=== PATIENT | female | born 1955 | race Caucasian/White ===

== ENCOUNTER 2021-03-22 10:03 | Outpatient (CLI) | payer MEDICARE, SELFPAY ==
--- NOTE | ~2021-03-22 | CT_ITS ---
EXAMINATION: CT lung screening DATE: 03/22/2021 10:31 INDICATION: Personal history of tobacco dependence, current smoker with 30 pack year history TECHNIQUE: Computed tomography (CT) of the chest was performed without intravenous contrast. The dose -length product (DLP) was 259.83 mGy-cm. Automated exposure control and iterative reconstruction tech [employer] were employed. COMPARISON: None FINDINGS: There is a 3 mm nodule of the left lower lobe on image 85. There is a 4 mm nodule of the ri ght middle lobe on image 58. There is mild emphysema. There is no pleural effusion or pneumothorax. T he lungs are free of acute opacities. No pathologically enlarged thoracic lymph nodes are identified. The heart size is normal. 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 Calcified coronar y artery atherosclerosis is noted. Calcified pulmonary nodules and calcified right hilar and mediasti nal lymph nodes are consistent with old granulomatous disease. There is a partially imaged cyst of th e right kidney upper pole measuring up to 5.8 cm. Cholelithiasis is noted. There are bridging osteoph ytes at multiple levels in the spine, consistent with diffuse idiopathic skeletal hyperostosis (DISH) . IMPRESSION: 1. Lung-RADS category 2: Benign appearance or behavior. Continue annual screening with noncontrast lo w-dose chest CT in 12 months. Reviewed, dictated and finalized at location A. IMPRESSION: 1. Lung-RADS category 2: Benign appearance or behavior. Continue annual screeni ng with noncontrast low-dose chest CT in 12 months.
== END 2021-03-22 10:04 | disposition home or self-care (01) ==
PROVIDERS: PCP Emergency Medicine; Visit Provider Emergency Medicine
DX: Z12.2 Encounter for screening for malignant neoplasm of respiratory organs (principal); Z87.891 Personal history of nicotine dependence
CPT/HCPCS: 71271

== ENCOUNTER 2022-01-25 09:56 | Outpatient (CLI) | payer MEDICARE, SELFPAY ==
--- NOTE | ~2022-01-25 | MM_ITS ---
EXAMINATION: MM screening [facility] BI w barry HISTORY: Screening mammogram TECHNIQUE: Craniocaudal and mediolateral oblique 3-D tomosynthesis images were obtained and synthetic 2-D images were generated. CAD analysis was submitted and interpreted. COMPARISON: 09/24/2018, 07/31/1716 BREAST PARENCHYMAL COMPOSITION: The breasts are almost entirely fatty. FINDINGS: There is no suspicious mass, calcification, or architectural distortion to suggest malignan cy in either breast. There has been no suspicious interval change. IMPRESSION: 1. No mammographic evidence of malignancy. 2. Recommend routine screening mammography in one year. BI-RADS Category 1: Negative Reviewed, dictated and finalized at location A.
== END 2022-01-25 09:57 | disposition home or self-care (01) ==
PROVIDERS: PCP Emergency Medicine; Visit Provider Emergency Medicine
DX: Z12.31 Encounter for screening mammogram for malignant neoplasm of breast (principal)
CPT/HCPCS: 77063; 77067

== ENCOUNTER 2022-02-18 11:14 | Emergency (ER) | payer MEDICARE, MEDICAID, SELFPAY ==
--- NOTE | ~2022-02-18 | XR_ITS ---
XR tibia fibula LT 2V DATE: 02/18/2022 12:39 INDICATION: Fall 10 days ago, worsening pain TECHNIQUE: AP and lateral views COMPARISON: None FINDINGS: There is a comminuted intra-articular fracture of the lateral tibial plateau, with minimal displacement. There is suprapatellar knee joint effusion. Diffuse osteopenia. No other fracture or dislocation is detected. Tricompartmental left knee osteoarthritis. IMPRESSION: Comminuted intra-articular fracture of the lateral tibial plateau with joint effusion Osteoarthritis of the left knee Reviewed, dictated and finalized at location A. IMPRESSION: Comminuted intra-articular fracture of the lateral tibial plateau w ith joint effusion Osteoarthritis of the left knee
--- NOTE | ~2022-02-18 | CT_ITS ---
CT OF LEFT knee EXAMINATION: CT knee LT wo con DATE: 02/18/2022 14:36 INDICATION: Tibial plateau fracture. TECHNIQUE: Computed tomography (CT) of the left knee was performed without intravenous contrast. Auto mated exposure control and iterative reconstruction technique were employed. The dose-length product was 504.34 mGy-cm. COMPARISON: X-ray femur and tib-fib, same date FINDINGS: Limitations: None Bones: Severely decreased bone mineral density. Comminuted fracture of the medial and lateral aspects of the roughly posterior half of the tibial plateau, including the tibial spine. Depressed fragments , with cortical step-offs in both the medial and lateral compartments, measuring up to 4 and 7 mm res pectively. Lateral subluxation of the intact patella. Severe tricompartmental knee osteoarthritis. De generative change at the tibiofibular articulation. Soft Tissues:The soft tissues appear within normal limits. No evidence of mass or fluid collection. Fluid: Large volume joint fluid, containing fat. IMPRESSION: Comminuted, depressed fractures of the posterior aspect of the medial and lateral left tibial plateau . Large lipohemarthrosis. Reviewed, dictated and finalized at location K. IMPRESSION: Comminuted, depressed fractures of the posterior aspect of the medial and later al left tibial plateau. Large lipohemarthrosis.
--- NOTE | ~2022-02-18 | XR_ITS ---
XR femur LT min 2V DATE: 02/18/2022 12:39 INDICATION: Fall 2010 days ago. Worsening left leg pain TECHNIQUE: AP and lateral views of left femur COMPARISON: None FINDINGS: Prominent calcified uterine fibroid overlies the lower mid pelvis. Status post left total hip arthroplasty. No fracture or dislocation, periosteal reaction or bone destruction is detected. There is suprapatellar knee joint effusion. IMPRESSION: Status post left total hip arthroplasty Osteopenia Left suprapatellar knee joint effusion Left lateral tibial plateau fracture, likely recent Left knee osteoarthritis Reviewed, dictated and finalized at location A.
[2022-02-18 11:18] VITALS: BP 112/59; PULSE 110; RESP 16; TEMP 36.2; O2SAT 97
--- NOTE | 2022-02-18 12:30 | ED.LOWEXIN ---
HPI - Extremity Injury (Lower) General Chief Complaint: Extremity Injury, Lower Stated Complaint: fall x 10 days ago, LLE pain Time Seen by Provider: 02/18/22 12:04 Source: patient History of Present Illness HPI Narrative: Patient presents with left lower extremity pain. Reports she fell a approximately 10 days ago was monitoring her symptoms however pain in her legs getting progressively worse so she came to the ER for evaluation. Pain is primarily in her lower leg and achy constant worse with attempting to walk around radiates up her leg. She denies any focal numbness or weakness. She denies any nausea vomiting or changes in visions. Related Data Allergies Allergy/AdvReac Type Severity Reaction Status Date / Time poison hanh extract Allergy Severe Rash Verified 02/18/22 12:04 poison oak extract Allergy Severe Rash Verified 02/18/22 12:04 poison sumac extract Allergy Severe Rash Verified 02/18/22 12:04 Review of Systems Review of Systems: CONSTITUTIONAL: Denies fever, chills, or sweats. EYES: Denies visual changes, redness, or discharge. ENT: Denies rhinorrhea, congestion, sore throat, or otalgia. CARDIOVASCULAR: Denies chest pain, palpitations, or edema. RESPIRATORY: Denies cough or dyspnea. GASTROINTESTINAL: Denies abdominal pain, nausea, vomiting, or diarrhea. GENITOURINARY: Denies dysuria or hematuria. SKIN: Denies rash or itching. MUSCULOSKELETAL: Denies back pain, or myalgia. NEUROLOGIC: Denies headache, numbness, dizziness, or weakness. PSYCHIATRIC: Denies anxiety or depression. All systems reviewed & are unremarkable except as noted in HPI and below PMFSH Family History Family History Mother Hypertension Father Family history of malignant neoplasm Sibling Family history of malignant neoplasm Social History Social History Alcohol intake: current Exam Narrative: GENERAL: Well-appearing, well-nourished, and in no acute distress. HEAD: Normocephalic, atraumatic. EYES: PERRLA and EOMI. ENT: Nares clear, no rhinorrhea or epistaxis. Mucous membranes moist. NECK: Supple. No masses. No JVD EXTREMITIES: Normal range of motion. Ecchymosis to the anterior aspect of the left lower leg there is diffuse tenderness on the knee and left lower leg as well as the left ankle mild edema to the left knee and left ankle there is no obvious deformity there is no focal bony tenderness there is no open or draining wounds SKIN: Warm, dry, no rash. NEURO: No focal deficits. Alert and oriented x3. PSYCH: Normal mood and affect. Course Consultations Consultation #1: Case cussed with orthopedics on-call movement given the injury recommend transfer to another facility reach out to [facility] for further consultation. Date: 02/18/22 Time: 15:38 Consultation #2: [facility] return phone call and will happily see the patient in clinic next week. Patient is comfortable with the outpatient. Date: 02/18/22 Time: 15:56 Vital Signs Vital signs: Vital Signs Temperature 36.2 C L 02/18/22 11:18 Pulse Rate 110 H 02/18/22 11:18 Respiratory Rate 16 02/18/22 11:18 Blood Pressure 112/59 L 02/18/22 11:18 Pulse Oximetry 97 02/18/22 11:18 Temperature 36.2 C L 02/18/22 11:18 Pulse Rate 94 02/18/22 16:29 Respiratory Rate 18 02/18/22 16:29 Blood Pressure 122/81 02/18/22 16:29 Pulse Oximetry 99 02/18/22 16:29 MDM - Extremity Injury (Lower) MDM Narrative Medical decision making narrative: H&P as above, vss, pt looks clinically well, exam tenderness to left knee distal extremity neurovascularly intact, imaging with tibial plateau fracture, additional labs/img considered, symptomatic relief available as needed, on reevaluation pt continues to looks clinically well. Suspect isolated tibial plateau fracture, dns dislocation, major neurovascular compromise, compartment syndrome plan to tx
[2022-02-18] MEDS: MORPHINE SULFATE INJ (*CRX) 10 MG/ML AMP IM (16:15)
[2022-02-18 16:29] VITALS: BP 122/81; PULSE 94; RESP 18; O2SAT 99
== END 2022-02-18 16:32 | disposition home or self-care (01) ==
PROVIDERS: Emergency Provider Emergency Medicine; PCP Emergency Medicine
DX: S82.142A Displaced bicondylar fracture of left tibia, initial encounter for closed fracture (principal); M85.862 Other specified disorders of bone density and structure, left lower leg; M17.12 Unilateral primary osteoarthritis, left knee; W19.XXXA Unspecified fall, initial encounter
CPT/HCPCS: 73552; 73590; 73700; 96372; 99284; J2270

== ENCOUNTER 2022-09-18 09:58 | Outpatient (CLI) | payer MEDICARE, MEDICAID, SELFPAY ==
--- NOTE | ~2022-09-18 | DEXA_ITS ---
Bone Density Report Name: ROYCE ALLEN Age: 67 Sex: Female Ethnicity: White Date of : 1955 Indication: postmenopausal; screening for osteoporosis; height loss; Referring Provider: LINDA JETT Study: Bone densitometry was performed. Exam Date: September 18, 2022 Accession number: [id number] Bone Density: Region BMD T-score Z-score Classification AP Spine(L1-L4) 0.963 -0.8 1.1 Normal World Health Organization criteria for BMD impression classify patients as: Normal (T-score at or above -1.0), Osteopenia (T-score between -1.0 and -2.5), or Osteoporosis (T-score at or below -2.5). Clinical Information Provided by Patient: Smokes Has used the following medications: Vitamin D Patient maximum height was 65 Menopause Age: 55 Drinks caffeinated beverages Onset of menses at age 13 Number of children 3 Impression: The patient has normal bone mass. The patient has risk factors, including: smoking. Discussion: BONE DENSITY IS ABOVE THE MINIMUM DESIRABLE LEVEL AT ALL SKELETAL SITES TESTED. This patient?s bone mineral density is above the minimum desirable level (T-score -1.0 or better) at all sites measured. The patient should follow a healthful lifestyle (good nutrition with adequate calcium and vitamin D, and appropriate weight-bearing exercise). Follow-Up: Consider repeating this study in 5 years or sooner if there is some new clinical indication. Reported by: HUMBLE on 09/18/2022 10:17:00 AM. Reviewed, dictated and finalized at location Raheem LARIOS
== END 2022-09-18 09:59 | disposition home or self-care (01) ==
PROVIDERS: PCP Emergency Medicine; Visit Provider Emergency Medicine
DX: Z78.0 Asymptomatic menopausal state (principal)
CPT/HCPCS: 77080

== ENCOUNTER 2023-04-16 12:35 | Outpatient (CLI) | payer MEDICARE, MEDICAID, SELFPAY ==
[2023-04-16 12:58] LABS: Hematocrit 54.1 % (37.0-47.0); Hemoglobin 17.2 g/dL (12.0-15.0); Mean Corpuscular HGB Conc 31.8 g/dl (32-36); Mean Corpuscular Hemoglobin 30.8 pg (26-34); Mean Corpuscular Volume 96.8 fl (80-100); Mean Platelet Volume 9.3 fl (7.4-10.4); Platelet Count Result 268 k/mm3 (150-375); Red Blood Count 5.59 M/mm3 (4.2-5.4); Red Cell Distribution Width 12.3 % (11.5-14.5); White Blood Count 12.3 K/mm3 (4.5-10.0)
[2023-04-16 16:26] LABS: Creatinine Urine 3.7 mg/dL
[2023-04-16 16:41] LABS: Free T4 Free Thyroxine 1.17 ng/mL (0.78-2.19); Vitamin D 25 Hydroxy 38.7 ng/mL
[2023-04-16 17:07] LABS: Appearance Urine Clear (Clear); Bacteria Urine 2+ /hpf; Bilirubin Urine Negative (Negative); Blood Urine Trace (Negative); Color Urine Yellow (Yellow); Glucose Urine UA Negative (Negative); Ketones Urine Negative (Negative); Leukocyte Esterase Ur Trace LEU/UL (NEGATIVE); Need Manual Microscopic Reviewed; Nitrate Urine Negative (Negative); Non Pathogenic Casts 0-2; Protein Urine Negative (Negative); Specific Grav Ur 1.001 (1.001-1.035); Squamous Epithelial Cell Urine None seen /hpf (Few); Urobilinogen Urine 0.2 mg/dL (<2.0); WBC Urine 0-5 /hpf (0-3); pH Urine 7.5 (5.0-9.0)
[2023-04-16 17:09] LABS: Add Urine Microscopic? YES
[2023-04-16 17:31] LABS: LDL Cholesterol Direct 93 mg/dL
[2023-04-16 18:02] LABS: Microalbumin Urine Random < 6.0 mg/L (0-16.7)
[2023-04-16 18:40] LABS: Hemoglobin A1C 5.3 % (<5.7)
[2023-04-16 18:48] LABS: Alanine Aminotransferase 20 U/L (6-35); Albumin Level 4.6 g/dL (3.5-5.1); Alkaline Phosphatase 88 U/L (38-126); Anion Gap 4 mmol/L (8-16); Aspartate Amino Transferase 25 U/L (14-36); Bilirubin,Total 0.3 mg/dL (0.2-1.3); Blood Urea Nitrogen 12 mg/dL (7-17); Calcium 10.1 mg/dL (8.4-10.2); Carbon Dioxide 33 mmol/L (22-30); Chloride 99 mmol/L (98-107); Cholesterol 202 mg/dL (0-200); Estimated Glomerular Filt Rate > 60; Glucose 89 mg/dL (65-110); HDL Direct 57 mg/dL; Potassium 4.2 mmol/L (3.4-5.0); Sodium 136 mmol/L (137-145); Triglycerides 257 mg/dL (<150)
== END 2023-04-16 12:36 | disposition home or self-care (01) ==
LOC: ANHLAB 12:38
PROVIDERS: PCP Emergency Medicine; Visit Provider Internal Medicine Hematology & Oncology
DX: F41.9 Anxiety disorder, unspecified (principal); F32.9 Major depressive disorder, single episode, unspecified; I10 Essential (primary) hypertension; J40 Bronchitis, not specified as acute or chronic; D72.829 Elevated white blood cell count, unspecified; E78.5 Hyperlipidemia, unspecified; E55.9 Vitamin D deficiency, unspecified; R73.9 Hyperglycemia, unspecified
CPT/HCPCS: 36415; 80053; 80061; 81001; 82043; 82306; 83036; 84439; 84443; 85027

== ENCOUNTER 2023-06-04 10:38 | Outpatient (CLI) | payer MEDICARE, MEDICAID, SELFPAY ==
[2023-06-04 17:44] LABS: Appearance Urine Clear (Clear); Bilirubin Urine Negative (Negative); Blood Urine Negative (Negative); Color Urine Yellow (Yellow); Glucose Urine UA Negative (Negative); Ketones Urine Negative (Negative); Leukocyte Esterase Ur Negative LEU/UL (NEGATIVE); Nitrate Urine Negative (Negative); Protein Urine Negative (Negative); Specific Grav Ur 1.008 (1.001-1.035); Urobilinogen Urine 0.2 mg/dL (<2.0)
[2023-06-04 17:58] LABS: Add Urine Microscopic? NO
[2023-06-04 18:46] LABS: Creatinine Urine 69.5 mg/dL
[2023-06-04 19:49] LABS: MALB Creatinine Ratio < 8.6 mg/g (0-30); Microalbumin Urine Random < 6.0 mg/L (0-16.7)
== END 2023-06-04 10:39 | disposition home or self-care (01) ==
LOC: ANHLAB 10:41
PROVIDERS: PCP Emergency Medicine; Visit Provider Internal Medicine Hematology & Oncology
DX: R31.9 Hematuria, unspecified (principal); B96.89 Other specified bacterial agents as the cause of diseases classified elsewhere
CPT/HCPCS: 81003; 82043; 88108

== ENCOUNTER 2023-09-17 11:53 | Outpatient (CLI) | payer MEDICARE, MEDICAID, SELFPAY ==
[2023-09-17 12:15] LABS: Basophils Absolute Auto 0.1 K/mm3 (0.0-0.1); Basophils Percent Auto 0.7 % (0.2-1.2); Eosinophils Absolute Auto 0.1 K/mm3 (0-0.3); Eosinophils Percent Auto 1.2 % (0-4.4); Hematocrit 56.8 % (37.0-47.0); Hemoglobin 17.5 g/dL (12.0-15.0); Immature Granulocyte Absolute 0.05 K/mm3 (0.00-0.031); Immature Granulocyte Percent A 0.4 % (0-0.5); Lymphocytes Absolute Auto 2.52 K/mm3 (0.9-3.2); Mean Corpuscular HGB Conc 30.8 g/dl (32-36); Mean Corpuscular Hemoglobin 30.3 pg (26-34); Mean Corpuscular Volume 98.4 fl (80-100); Monocytes Absolute Auto 0.6 K/mm3 (0.1-0.6); Monocytes Percent Auto 4.7 % (2.6-8.5); Neutrophils Absolute Auto 8.6 K/mm3 (1.3-6.7); Platelet Count Result 263 k/mm3 (150-375); Red Blood Count 5.77 M/mm3 (4.2-5.4); Red Cell Distribution Width 13.1 % (11.5-14.5)
[2023-09-17 16:47] LABS: Iron 108 ug/dL (37-170)
[2023-09-17 16:56] LABS: Alanine Aminotransferase 22 U/L (6-35); Albumin Level 4.5 g/dL (3.5-5.1); Alkaline Phosphatase 108 U/L (38-126); Anion Gap 3 mmol/L (8-16); Aspartate Amino Transferase 29 U/L (14-36); Bilirubin,Total 0.7 mg/dL (0.2-1.3); Blood Urea Nitrogen 17 mg/dL (7-17); Calcium 10.6 mg/dL (8.4-10.2); Carbon Dioxide 39 mmol/L (22-30); Chloride 100 mmol/L (98-107); Estimated Glomerular Filt Rate > 60; Glucose 92 mg/dL (65-110); Potassium 4.4 mmol/L (3.4-5.0); Sodium 142 mmol/L (137-145)
[2023-09-17 17:01] LABS: Percent Iron Saturation 31 % (20-50)
[2023-09-17 17:13] LABS: Erythrocyte Sedimentation Rate 3 mm/hr (0-20)
[2023-09-20 12:59] LABS: Erythropoietin (EPO) 14.6 mIU/mL (2.6-18.5)
== END 2023-09-17 11:54 | disposition home or self-care (01) ==
PROVIDERS: Nurse Practitioner Family; PCP Emergency Medicine; Visit Provider Internal Medicine Hematology & Oncology
DX: D72.829 Elevated white blood cell count, unspecified (principal); D50.9 Iron deficiency anemia, unspecified; D75.1 Secondary polycythemia
CPT/HCPCS: 36415; 80053; 82668; 83540; 83550; 85025; 85652; 86038; 86039; 86140

== ENCOUNTER 2023-10-01 11:40 | Outpatient (CLI) | payer MEDICARE, MEDICAID, SELFPAY ==
--- NOTE | ~2023-10-01 | XR_ITS ---
XR chest 2V DATE: 10/01/2023 12:06 INDICATION: Cough. COPD with exacerbation. TECHNIQUE: 2 views COMPARISON: 03/2021 CT lung screening FINDINGS: Moderate bilateral hyperinflation consistent with clinical history of COPD. There is old pu lmonary granulomatous disease including calcified right upper lobe pulmonary granuloma, calcified azy gous lymph nodes. No pulmonary infiltrate or consolidation, pleural effusion or pulmonary vascular congestion or pneumo thorax is detected. Heart size is within normal range. No hilar or mediastinal enlargement is evident. Osteopenia. There is minimal levoscoliosis and moderate degenerative spurring of the thoracic spine. IMPRESSION: Moderate hyperinflation consistent with COPD No active cardiopulmonary disease Reviewed, dictated and finalized at location L. WORKING SHOP LABORER
== END 2023-10-01 11:41 | disposition home or self-care (01) ==
PROVIDERS: PCP Emergency Medicine; Visit Provider Nurse Practitioner Family
DX: J44.1 Chronic obstructive pulmonary disease with (acute) exacerbation (principal)
CPT/HCPCS: 71046

== ENCOUNTER 2024-07-03 09:22 | Outpatient (CLI) | payer MEDICARE, MEDICAID, SELFPAY ==
--- NOTE | ~2024-07-03 | MM_ITS ---
EXAMINATION: MM screening [facility] BI w barry HISTORY: Screening mammogram TECHNIQUE: Craniocaudal and mediolateral oblique 3-D tomosynthesis images were obtained and synthetic 2-D images were generated. CAD analysis was submitted and interpreted. COMPARISON: 01/25/2022, 09/24/2018, 07/31/2017 BREAST PARENCHYMAL COMPOSITION:Not Dense. The breasts are almost entirely fatty FINDINGS: No suspicious mass, calcification, or architectural distortion are identified in either jenni ast to suggest malignancy. There has been no suspicious interval change. IMPRESSION: No mammographic evidence of malignancy. Recommend routine screening mammography in one year. BI-RADS Category 1: Negative Reviewed, dictated and finalized at location . ORT SERVICE TECH
== END 2024-07-03 09:23 | disposition home or self-care (01) ==
LOC: ANHIMG 09:25
PROVIDERS: PCP Emergency Medicine; Visit Provider Emergency Medicine
DX: Z12.31 Encounter for screening mammogram for malignant neoplasm of breast (principal)
CPT/HCPCS: 77063; 77067

== ENCOUNTER 2024-10-29 11:01 | Outpatient (CLI) | payer MEDICARE, MEDICAID, SELFPAY ==
[2024-10-29 11:14] LABS: Basophils Absolute Auto 0.1 K/mm3 (0.0-0.1); Basophils Percent Auto 0.7 % (0.2-1.2); Eosinophils Absolute Auto 0.2 K/mm3 (0-0.3); Eosinophils Percent Auto 1.7 % (0-4.4); Hematocrit 49.4 % (37.0-47.0); Hemoglobin 15.4 g/dL (12.0-15.0); Immature Granulocyte Absolute 0.06 K/mm3 (0.00-0.031); Immature Granulocyte Percent A 0.5 % (0-0.5); Lymphocytes Absolute Auto 2.64 K/mm3 (0.9-3.2); Lymphocytes Percent Auto 20.9 % (18.3-44.2); Mean Corpuscular HGB Conc 31.2 g/dl (32-36); Mean Corpuscular Hemoglobin 30.1 pg (26-34); Mean Corpuscular Volume 96.7 fl (80-100); Mean Platelet Volume 9.4 fl (7.4-10.4); Monocytes Absolute Auto 0.8 K/mm3 (0.1-0.6); Neutrophils Absolute Auto 8.9 K/mm3 (1.3-6.7); Neutrophils Percent Auto 70.2 % (45.5-73.1); Platelet Count Result 248 k/mm3 (150-375); Red Blood Count 5.11 M/mm3 (4.2-5.4); Red Cell Distribution Width 12.4 % (11.5-14.5); White Blood Count 12.6 K/mm3 (4.5-10.0)
[2024-10-29 12:00] LABS: Anion Gap 9 mmol/L (4-12); Blood Urea Nitrogen 21 mg/dL (7-17); Calcium 10.2 mg/dL (8.4-10.2); Carbon Dioxide 34 mmol/L (22-30); Chloride 96 mmol/L (98-107); Estimated Glomerular Filt Rate 43; Glucose 96 mg/dL (65-110); Potassium 4.3 mmol/L (3.4-5.0); Sodium 139 mmol/L (137-145)
--- OUTSIDE RECORDS SUMMARY | 2024-10-29 12:56 | XMS_ITS | Referral Summary ---
Author Organization [facility] [place] [address] Address [address] [place] [address] Care Team Providers Care Windows Application Developer Name Role Phone Brice Bustos MD Primary Care Provider [phone] Allergies No known active allergies Medications calcium carbonate-vit D3-min 600 mg calcium- 200 unit tablet Take by mouth daily Active multivitamin capsule Take 1 capsule by mouth daily Active sertraline (ZOLOFT) 25 mg tablet Take 25 mg by mouth daily Active amLODIPine besylate, bulk, 100 % powder daily Active lisinopril (PRINIVIL,ZESTRIL) 40 mg tablet Take 40 mg by mouth daily Active alendronate (FOSAMAX) 10 mg tablet Take 10 mg by mouth daily before breakfast Take in the morning with a full glass of water, on an empty stomach, and do not take anything else by mouth or lie down for the next 30 min. Active atorvastatin (LIPITOR) 20 mg tabletIndications: Mixed hyperlipidemia Take 1 tablet (20 mg total) by mouth daily 30 tablet 11 9 Active Active Problems Problem Noted Date Diagnosed Date Essential hypertension 02/23/2019 Mixed hyperlipidemia 02/23/2019 Tobacco abuse counseling 02/23/2019 Social History Tobacco Use Types Packs/Day Years Used Date Smoking Tobacco: Every Day Smokeless Tobacco: Never Alcohol Use Standard Drinks/Week Comments Yes 0 (1 standard drink = 0.6 oz pur e alcohol) jessika Personal Safety Answer Date Recorded Getting School Help Needed Not on file 11/01 Comments Unknown Sex and Gender Information Value Date Recorded Sex Assigned at Not on file 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 Gender Identity Not on file Sexual Orientation Not on file Last Filed Vital Signs Vital Sign Reading Time Taken Comments Blood Pressure 112/68 02/23/2019 9:29 AM CDT Pulse 95 02/23/2019 9:29 AM CDT Temperature - - Respiratory Rate - - Oxygen Saturation 95% 02/23/2019 9:29 AM CDT Inhaled Oxygen Concentration - - Weight 85.7 kg (189 lb) 02/23/2019 9:29 AM CDT Height 162.6 cm (5' 4 ) 02/23/2019 9:29 AM CDT Body Mass Index 32.44 02/23/2019 9:29 AM CDT Plan of Treatment Not on file Insurance [employer] H[employer] Care Teams Windows Application Developer Relationship Specialty Start Date End Date Brice Bustos MD PCP - General Emergency Medicine 12/15/18
--- OUTSIDE RECORDS SUMMARY | 2024-10-29 12:56 | XMS_ITS | Clinical Summary ---
Author Organization [facility] [place] [place] [address] Address [address] [place] [address] Care Team Providers Care Crepe Machine Operator Name Role Phone Brice Bustos MD Primary Care Provider [phone] Allergies No known active allergies Medications calcium [...] Mixed hyperlipidemia 02/23/2019 Tobacco abuse counseling 02/23/2019 Surgical History Surgery Date Site/Laterality Comments TUBAL LIGATION TOTAL HIP ARTHROPLASTY Medical History Medical History Date Comments Hypertension Hyperlipidemia Family History Medical History Relation Name Comments Heart failure Brother Emphysema Father Hypertension Mother Relation Name Status Comments Brother Father (Age 75) emphysema Mother (Age 86) natural Sister (Age 49) cancer Social History Tobacco Use Types Packs/Day Years [...] on file 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
--- OUTSIDE RECORDS SUMMARY | 2024-10-29 12:56 | XMS_ITS | Encounter Summary ---
Author Organization [facility] Address [address] [place] [address] Care Team Providers Care Vamp Throater Name Role Phone Brice Bustos MD Primary Care Provider [phone] Encounter Details Date Type Department Care Team (Late Contact Info) Description 10/27/2024 External Device Data [facility] ABSTRACTION Provider, Abstract NO ADDRESS ON FILE Social History Tobacco Use Types Packs/Day Years Used Date Smoking Tobacco: Former Cigarettes 1 52 0 09/17/1971 - 09/25/2023 Smokeless Tobacco: Never Alcohol Use Standard Drinks/Week Comments Yes 0 (1 standard drink = 0.6 oz pur e alcohol) socially Comments Unknown Sex and Gender Information Value Date Recorded Sex Assigned at Not on file Legal Sex Female 3:04 PM CDT Gender Identity Not on file Sexual Orientation Not on file documented as of this encounter Plan of Treatment Upcoming Encounters Date Type Department Care Team (Late st Contact Info) Description 11/05/2024 11:45 AM CDT Office Visit [facility] - [place] [address] [facility] [address] [place] [address] Augie Ocampo MD [address] [facility] [address] [place] [address] documented as of this encounter Visit Diagnoses Not on filedocumented in this encounter Care Teams Vamp Throater Relationship Specialty Start Date End Date Brice Bustos MD [address] [place] [address] [address] [place] [address] PCP - General Family Practice 09/17/23 documented as of this encounter
--- OUTSIDE RECORDS SUMMARY | 2024-10-29 12:56 | XMS_ITS | Patient Health Summary ---
Author Organization [facility] [email or web address] Address [address] [place] [address] Care Team Providers Care Repair Manager Name Role Phone Ryan Noel MD Primary Care Provider [phone] Note from [facility],non-owned Affiliates and Associated Physician Practices is amultiple site organization consisting of ambulatory clinics and hospital sitesin [place], [place], [place] and [place]. This disclosure is being madepursuant to the Care Everywhere program and may not contain all information available regarding this patient. Last updated 18.[facility] [email or web address] Allergies No known active allergies Medications * Be aware that medications may not be up to date on this document. Alwaysverify current medications with the patient. * amLODIPine (NORVASC) 10 MG tablet(Started 02/05/2021) Take 1 (one) tablet by mouth once daily * Calcium Carbonate-Vit D-Min (RA CALCIUM 600/VIT D/MINERALS) 600-200 MG-UNIT TABS Take by mouth once daily * lisinopril (PRINIVIL; ZESTRIL) 40 MG tablet(Started 02/05/2021) Take 1 (one) tablet by mouth once daily * multivitamins (ONE A DAY) capsule Take 1 (one) capsule by mouth once daily * sertraline (ZOLOFT) 25 MG tablet(Started 02/05/2021) Take 1 (one) tablet by mouth once daily * simvastatin (ZOCOR) 10 MG tablet(Started 02/08/2021) Take 1 (one) tablet by mouth at bedtime * cyanocobalamin (VITAMIN B-12) 100 MCG tablet Take 1 (one) tablet by mouth once daily * Cholecalciferol (VITAMIN D3) 10 MCG (400 UNIT) * Aspirin 81 MG CAPS Take 81 mg by mouth once daily Active Problems Problem Noted Date Diagnosed Date Tibial plateau fracture, lef t, closed, with routine healing, subsequent encounter 03/21/2022 History of substance abuse 04/19/2021 History of total hip replacement 04/19/2021 Hyperlipidemia 04/19/2021 Obesity 04/19/2021 Osteopenia 04/19/2021 Viral hepatitis C 04/19/2021 Essential hypertension 02/23/2019 Social History Tobacco Use Types Packs/Day Years Used Date Smoking Tobacco: Former Cigarettes 1 50 0 09/24/1973 - 09/24/2023 Smokeless Tobacco: Never Tobacco Cessation:Counseling Given: Not Answered Alcohol Use Standard Drinks/Week Comments Not Currently 0 (1 standard drink = 0.6 oz pur e alcohol) rarely Sex and Gender Information Value Date Recorded Sex Assigned at Not on file Gender Identity Not on file Sexual Orientation Not on file Last Filed Vital Signs Vital Sign Reading Time Taken Comments Blood Pressure 118/80 11/07/2023 1:05 PM CDT Pulse 115 11/07/2023 1:05 PM CDT Temperature 36.1 C (97 F) 04/18/2021 9:08 AM CDT Respiratory Rate 16 11/07/2023 1:05 PM CDT Oxygen Saturation 96% 11/07/2023 1:05 PM CDT Inhaled Oxygen Concentration - - Weight 92.1 kg (203 lb) 11/07/2023 1:05 PM CDT Height 165.1 cm (5' 5 ) 11/07/2023 1:05 PM CDT Body Mass Index 33.78 11/07/2023 1:05 PM CDT Procedures * SURYA BLOOD TITER(Performed 11/13/2023) * DNA ANTIBODY DS CRITHIDIA W/REFLEX TITER(Performed 11/13/2023) Performed for Positive SURYA (antinuclear antibody), Polyarthralgia, Numbness, Shortness of breath onexertion * SURYA PANEL COMPREHENSIVE(Performed 11/13/2023) Performed for Positive SURYA (antinuclear antibody), Polyarthralgia, Numbness, Shortness of breath onexertion * RHEUMATOID FACTOR BLOOD QUANTITATIVE(Performed 11/13/2023) Performed for Positive SURYA (antinuclear antibody), Polyarthralgia, Numbness, Shortness of breath onexertion * ERYTHROCYTE SEDIMENTATION RATE(Performed 11/13/2023) Performed for Positive SURYA (antinuclear antibody), Polyarthralgia, Numbness, Shortness of breath onexertion * CYCLIC CITRULLINATED PEPTIDE(CCP) AB IGG(Performed 11/13/2023) Performed for Positive SURYA (antinuclear antibody), Polyarthralgia, Numbness, Shortness of breath onexertion * CREATININE BLOOD(Performed 11/13/2023) Performed for Positive SURYA (antinuclear antibody), Polyarthralgia, Numbness, Shortness of breath onexertion * C-REACTIVE PROTEIN(Performed 11/13/2023) Performed for Positive SURYA (antinuclear antibody), Polyarthralgia, Numbness, Shortness of breath onexertion * CK BLOOD(Performed 11/13/2023) Performed for Positive SURYA (antinuclear antibody), Polyarthralgia, Numbness, Shortness of breath onexertion * COMPLEMENT C4(Performed 11/13/2023) Performed for Positive SURYA (antinuclear antibody), Polyarthralgia, Numbness, Shortness of breath onexertion * COMPLEMENT C3(Performed 11/13/2023) Performed for Positive SURYA (antinuclear antibody), Polyarthralgia, Numbness, Shortness of breath onexertion * LUPUS ANTICOAGULANT PANEL W RFLX(Performed 11/13/2023) Performed for Positive SURYA (antinuclear antibody), Polyarthralgia, Numbness, Shortness of breath onexertion * CARDIOLIPIN ANTIBODY IGA/IGG/IGM PANEL(Performed 11/13/2023) Performed for Positive SURYA (antinuclear antibody), Polyarthralgia, Numbness, Shortness of breath onexertion * BETA-2 GLYCOPROTEIN 1 ANTIBODY IGG/IGM/IGA PANEL(Performed 11/13/2023) Performed for Positive SURYA (antinuclear antibody), Polyarthralgia, Numbness, Shortness of breath onexertion * SURYA BLOOD TITER(Performed 11/13/2023) * SURYA BLOOD SCREEN W/REFLEX TITER(Performed 11/13/2023) Performed for Positive SURYA (antinuclear antibody), Polyarthralgia, Numbness, Shortness of breath onexertion * ID DRAIN/INJECT LARGE JOINT/BURSA(Performed 08/31/2022) Performed for Primary osteoarthritis of left knee * XR KNEE LEFT 3VW(Performed 08/01/2022) Performed for Tibial plateau fracture, left, closed, with routine healing, subsequent encounter * XR KNEE LEFT 3VW(Performed 05/02/2022) Performed for Closed fracture of lateral portion of left tibial plateau, initial encounter * XR KNEE LEFT 3VW(Performed 03/21/2022) Performed for Closed fracture of lateral portion of left tibial plateau, initial encounter * XR KNEE LEFT 2VW OR LESS(Performed 02/21/2022) Performed for Closed fracture of lateral portion of left tibial plateau, initial encounter * HEPATITIS SCREEN ACUTE(Performed 04/18/2021) Performed for Positive SURYA (antinuclear antibody), Polyarthralgia * ERYTHROCYTE SEDIMENTATION RATE(Performed 04/18/2021) Performed for Positive SURYA (antinuclear antibody), Polyarthralgia * C-REACTIVE PROTEIN(Performed 04/18/2021) Performed for Positive SURYA (antinuclear antibody), Polyarthralgia * COMPLEMENT C3 C4 PANEL(Performed 04/18/2021) Performed for Positive SURYA (antinuclear antibody), Polyarthralgia * SURYA PANEL COMPREHENSIVE(Performed 04/18/2021) Performed for Positive SUYRA (antinuclear antibody), Polyarthralgia * SURYA BLOOD SCREEN W/REFLEX TITER(Performed 04/18/2021) Performed for Positive SURYA (antinuclear antibody), Polyarthralgia Results * DNA ANTIBODY DS CRITHIDIA W/REFLEX TITER (11/13/2023 9:20 AM CDT) dsDNA Antibody Crithidia IFA TNP [facility] Comment: TEST NOT PERFORMED Due to a laboratory error, we are unable to perform this test. Specimen exceeded stability due to incorrect storage. Test Performed at: [facility] [address] [place] [address] SUSAN PRIETO MD,PHD,MAGDI Blood BLOOD SPECIMEN / Unknown 11/13/2023 9:20 AM CDT 11/13/2023 9:22 AM CDT Glory Mtz MD LAB - HEMATOLOGY ORD ERABLES [facility] [address] [place] [address] * CARDIOLIPIN ANTIBODY IGA/IGG/IGM PANEL (11/13/2023 9:20 AM CDT) Pathologist [facility] Cardiolipin Antibody IgA <2.0 APL-U/mL [facility] Comment: Value Interpretation ----- < 20.0 Antibody not detected > or = 20.0 Antibody detected Cardiolipin Antibody IgG <2.0 GPL-U/mL [facility] Comment: Value Interpretation ----- < 20.0 Antibody not detected > or = 20.0 Antibody detected Cardiolipin Antibody IgM <2.0 MPL-U/mL [facility] Comment: Value Interpretation ----- < 20.0 Antibody not detected > or = 20.0 Antibody detected The antiphospholipid antibody syndrome (APS) is a clinical-pathologic correlation that includes a clinical event (e.g. arterial or venous thrombosis, morbidity) and persistent positive antiphospholipid antibodies (IgM, IgG Cardiolipin or b2GPI antibodies greater than the 99th percentile; or a lupus anticoagulant). International consensus guidelines for APS suggest waiting at least 12 weeks before retesting to confirm antibody persistence. The Systemic Lupus International Collaborating [facility]ics immunological classification criteria for systemic lupus erythematosus (SLE) include testing for isotype IgA, which has yet to be incorporated into APS criteria. Low level antiphospholipid antibodies may sometimes be detected in the setting of infection, drug therapy or aging. For additional information, please refer to http://education.SkyStem/faq/DBX564 (This link is being provided for informational/ educational purposes only.) Test Performed at: [facility] [address] [address] BIANCA MURPHY Blood BLOOD SPECIMEN / Unknown 11/13/2023 9:20 AM CDT 11/13/2023 9:22 AM CDT Glory Mtz MD LAB - SEROLOGY ORDER TONY Performing Organization Address [facility]/ZIP Co de Phone Number [facility] [address] [place] [address] * (ABNORMAL) SURYA PANEL COMPREHENSIVE (11/13/2023 9:20 AM CDT) Only the most recent of2 resultswithin the time period is included. Pathologist [facility] SURYA Screen POSITIVE( A) NEGATIVE [facility] Comment: SURYA IFA is a first line screen for detecting the presence of up to approximately 150 autoantibodies in various autoimmune diseases. A positive SURYA IFA result is suggestive of autoimmune disease and reflexes to titer and pattern. Further laboratory testing may be considered if clinically indicated. For additional information, please refer to http://Maluuba.[facility]/faq/IBU016 (This link is being provided for informational/ educational purposes only.) dsDNA Antibody 2 IU/mL [facility] Comment: IU/mL Interpretation < or = 4 Negative 5-9 Indeterminate > or = 10 Positive SCL-70 Antibody <1.0 NEG <1.0 NEG AI [facility] SM Antibody <1.0 NEG <1.0 NEG AI [facility] SM/POSTBED STITCHER Antibody <1.0 NEG <1.0 NEG AI [facility] Sjogren's Antibodies (SSA) <1.0 NEG <1.0 NEG AI [facility] Sjogren's Antibodies (SSB) <1.0 NEG <1.0 NEG AI [facility] Comment: Test Performed at: [email or web address] [address] [place] [address] MIA WILKES MD Blood BLOOD SPECIMEN / Unknown 11/13/2023 9:20 AM CDT 11/13/2023 9:22 AM CDT Glory Mtz MD LAB - SEROLOGY ORDER TONY Performing Organization Address [facility]/ZIP Co de Phone Number [facility] [address] [place] [address] * LUPUS ANTICOAGULANT PANEL W RFLX (11/13/2023 9:20 AM CDT) Pathologist [facility] Lupus Anticoagulant NOT DETECTED [facility] Comment: A Lupus Anticoagulant is not detected. For more information on this test, go to: http://Maluuba.SkyStem/faq/VNW80c6 (This link is being provided for informational/ educational purposes only.) This interpretation is based on the following test results: PTT LA Screen 33 < OR = 40 sec [facility] dRVVT Screen 38 < OR = 45 sec [facility] Comment: Test Performed at: [facility] [address] [address] BIANCA MURPHY Blood BLOOD SPECIMEN / Unknown 11/13/2023 9:20 AM CDT 11/13/2023 9:22 AM CDT Glory Mtz MD LAB - HEMATOLOGY ORD ERABLES Performing Organization Address City/State/[facility] Co de Phone Number [facility] [address] [place] [address] * BETA-2 GLYCOPROTEIN 1 ANTIBODY IGG/IGM/IGA PANEL (11/13/2023 9:20 AM CDT) Beta-2 Glycoprotein I Antibody IgG <2.0 <20.0 U/mL [facility] Comment: Value Interpretation ----- < 20.0 Antibody not detected > or = 20.0 Antibody detected Beta-2 Glycoprotein I Antibody IgM <2.0 <20.0 U/mL [facility] Comment: Value Interpretation ----- < 20.0 Antibody not detected > or = 20.0 Antibody detected Beta-2 Glycoprotein I Antibody IgA <2.0 <20.0 U/mL [facility] Comment: Value Interpretation ----- < 20.0 Antibody not detected > or = 20.0 Antibody detected The antiphospholipid antibody syndrome (APS) is a clinical-pathologic correlation that includes a clinical event (e.g. arterial or venous thrombosis, morbidity) and persistent positive antiphospholipid antibodies (IgM, IgG Cardiolipin or b2GPI antibodies greater than the 99th percentile; or a lupus anticoagulant). International consensus guidelines for APS suggest waiting at least 12 weeks before retesting to confirm antibody persistence. The Systemic Lupus International Collaborating [facility] immunological classification criteria for systemic lupus erythematosus (SLE) include testing for isotype IgA, which has yet to be incorporated into APS criteria. Low level antiphospholipid antibodies may sometimes be detected in the setting of infection, drug therapy or aging. For additional information, please refer to http://Maluuba.SkyStem/faq/IFQ845 (This link is being provided for informational/ educational purposes only.) Test Performed at: [facility] [place] [address] [place], [place] JAMES HOFFMAN MD,PHD Blood BLOOD SPECIMEN / Unknown 11/13/2023 9:20 AM CDT 11/13/2023 9:22 AM CDT Glory Mtz MD LAB - SEROLOGY ORDER TONY Performing Organization Address [facility] [place] [place] [address] * RHEUMATOID FACTOR BLOOD QUANTITATIVE (11/13/2023 9:20 AM CDT) Rheumatoid Factor <14 <14 IU/mL [facility] Comment: Test Performed at: [email or web address] [address] [place] [address] IMA WILKES MD Blood BLOOD SPECIMEN / Unknown 11/13/2023 9:20 AM CDT 11/13/2023 9:22 AM CDT Glory Mtz MD LAB - CHEMISTRY ORDE RABLES Performing Organization Address [facility]/ZIP Co de Phone Number [address] [address] * (ABNORMAL) C-REACTIVE PROTEIN (11/13/2023 9:20 AM CDT) Only the most recent of2 resultswithin the time period is included. C-Reactive Protein 10.5(H) <8.0 mg/L [facility] Comment: Test Performed at: [facility] [place] [place] [address] MIA WILKES MD Blood BLOOD SPECIMEN / Unknown 11/13/2023 9:20 AM CDT 11/13/2023 9:22 AM CDT Glory Mtz MD LAB - CHEMISTRY [place] Performing Organization Address [facility] Co de Phone Number [facility] [address] [place] [address] * (ABNORMAL) SURYA BLOOD TITER (11/13/2023 9:20 AM CDT) Only the most recent of2 resultswithin the time period is included. SURYA 1:320(H) titer [facility] Comment: Reference Range <1:40 Negative 1:40-1:80 Low Antibody Level >1:80 Elevated Antibody Level SURYA Pattern Cytoplasm ic, Rods and Rings(A) [facility] Comment: Distinct darren and ring structures in the cytoplasm of interphase cells. Pattern is seen in hepatitis C patients post-IFN/ribavirin therapy, rarely in systemic lupus erythematosus (SLE), Fili's thyroiditis, and may be found in healthy persons. AC-23: Rods and Rings International Consensus on SURYA Patterns (https://doi.org/10.1515/mgbq-7495-2100) Test Performed at: [facility] [place] [address] MIA WILKES MD 11/13/2023 9:20 AM CDT 11/13/2023 9:22 AM CDT Glory Mtz MD LAB - CHEMISTRY [place] Performing Organization Address [facility] Co de Phone Number [facility] [address] [place] [phone] * CYCLIC CITRULLINATED PEPTIDE(CCP) AB IGG (11/13/2023 9:20 AM CDT) Cyclic Citrullinated Peptide Antibody IgG <16 UNITS [facility] Comment: Reference Range Negative: <20 Weak Positive: 20-39 Moderate Positive: 40-59 Strong Positive: >59 Test Performed at: [email or web address] [address] [address] MIA WILKES MD Blood BLOOD SPECIMEN / Unknown 11/13/2023 9:20 AM CDT 11/13/2023 9:22 AM CDT Glory Mtz MD LAB - CHEMISTRY ORDE RABCASEI Performing Organization Address [facility] Co de Phone Number [address] [address] * ERYTHROCYTE SEDIMENTATION RATE (11/13/2023 9:20 AM CDT) Only the most recent of2 resultswithin the time period is included. Erythrocyte Sedimentation Rate Westergren 19 < OR = 30 mm/h [facility] Comment: Test Performed at: [email or web address] [address] MIA WILKES MD Blood BLOOD SPECIMEN / Unknown 11/13/2023 9:20 AM CDT 11/13/2023 9:22 AM CDT Glory Mtz MD LAB - HEMATOLOGY ORD ERABLES Performing Organization Address [facility] Co de Phone Number [address] [address] * COMPLEMENT C4 (11/13/2023 9:20 AM CDT) Complement C4 44 15 - 57 mg/dL [facility] Comment: Test Performed at: [facility] [address] [address] MIA WILKES MD Blood BLOOD SPECIMEN / Unknown 11/13/2023 9:20 AM CDT 11/13/2023 9:22 AM CDT Glory Mtz MD LAB - SEROLOGY ORDER TONY Performing Organization Address City/[facility] Co de Phone Number [address] [address] * CREATININE BLOOD (11/13/2023 9:20 AM CDT) Creatinine 1.01 0.50 - 1.05 mg/dL [facility] eGFR by Cystatin C 61 > OR = 60 mL/min/1.7 3m2 [facility] Comment: Test Performed at: [email or web address] [address] MIA WILKES MD Blood BLOOD SPECIMEN / Unknown 11/13/2023 9:20 AM CDT 11/13/2023 9:22 AM CDT Glory Mtz MD LAB - CHEMISTRY [place] Performing Organization Address City/[facility]/ZIP Co de Phone Number [facility] [phone] [place] [address] * (ABNORMAL) CK BLOOD (11/13/2023 9:20 AM CDT) Pathologist [facility] CK 16(L) 29 - 143 U/L [facility] Comment: Test Performed at: [email or web address] [address] MIA WILKES MD Blood BLOOD SPECIMEN / Unknown 11/13/2023 9:20 AM CDT 11/13/2023 9:22 AM CDT Glory Mtz MD LAB - CHEMISTRY [place] Performing Organization Address [facility] Co de Phone Number [facility] [address] [place] [address] * COMPLEMENT C3 (11/13/2023 9:20 AM CDT) [facility] Complement C3 160 83 - 193 mg/dL [facility] Comment: Test Performed at: [facility] [address] [address] MIA WILKES MD Blood BLOOD SPECIMEN / Unknown 11/13/2023 9:20 AM CDT 11/13/2023 9:22 AM CDT Glory Mtz MD LAB - CHEMISTRY [place] Performing Organization Address [facility] Co de Phone Number [address] [address] * (ABNORMAL) SURYA BLOOD SCREEN W/REFLEX TITER (11/13/2023 9:18 AM CDT) Only the most recent of2 resultswithin the time period is included. [facility] SURYA Screen POSITIVE( A) NEGATIVE [facility] Comment: SURYA IFA is a first line screen for detecting the presence of up to approximately 150 autoantibodies in various autoimmune diseases. A positive SURYA IFA result is suggestive of autoimmune disease and reflexes to titer and pattern. Further laboratory testing may be considered if clinically indicated. For additional information, please refer to http://education.[facility]/faq/HFP414 (This link is being provided for informational/ educational purposes only.) Test Performed at: [facility] [place] [address] [place] [address] MIA WILKES MD Blood BLOOD SPECIMEN / Unknown 11/13/2023 9:18 AM CDT 11/13/2023 9:19 AM CDT Glory Mtz MD [facility] Organization Address City/State/ZIP Co de Phone Number [facility] [address] [place] [address] * ID DRAIN/INJECT LARGE JOINT/BURSA (08/31/2022 10:39 AM CANCER GENETIC COUNSELOR) Narrative Randall Davidson, DO - 08/31/2022 10:39 AM CANCER GENETIC COUNSELOR Randall Davidson, 09/02/2022 5:10 PM Left Knee Injection I explained the risks and benefits of steroid injections into the patient's left knee. These included pain at the site of the injection, local swelling, irritation from the injection, irritation from the skin spray, local discoloration of the skin, mild atrophy of the subcutaneous fat locally, possible irritation of the left knee joint as a result of a reaction to the medications injected, and a very small risk of left knee infection. It was explained to the patient that if they did have a flare up of pain in the evening following the injection that they should ice the knee 15 minutes at a time three times a day for up to three days and if the pain gets significantly worse and if they have pain with range of motion that gets too significant that the pain is worse than preinjection they should contact the office right away. After understanding the risks and benefits the patient wanted to proceed with the injection. Informed consent was obtained. The patient, procedure, laterality, site, medications and allergies were confirmed. The left knee was sterily prepped. After manual palpation and confirmation of the injection site, a mixture of 20mg 0.5% Ropivacaine, 2mL of 10mg Kenalog, and 1mL of 4mg of Dexamethasone was injected into the left knee without complications. A band-aid was placed over the injection site. The patient tolerated the procedure well. Randall Davidson DO MS Randall Davidson DO PROCEDURE/MINOR SURGICAL ORDERABLES * XR KNEE LEFT 3VW (08/01/2022 11:07 AM CANCER GENETIC COUNSELOR) Only the most recent of3 resultswithin the time period is included. Anatomical Region Laterality Modality Lower Extremity Radiographic Uenice ging 08/01/2022 11:3 4 AM CANCER GENETIC COUNSELOR Impressions 08/01/2022 12:48 PM CANCER GENETIC COUNSELOR IMPRESSION: Tibial plateau fracture with mildly increased depression posteriorly, otherwise unchanged in alignment. > Dictated by Corey Tinoco DO (Sales Demonstrator) I, Thomas Cleaning DO have personally reviewed and interpreted this examination/study. > Interpreting Provider: Thomas Cleaning DO on 08/01/2022 12:48 PM Narrative 08/01/2022 12:48 PM CANCER GENETIC COUNSELOR PROCEDURE: XR KNEE LEFT 3VW, DATE/TIME OF EXAM: 08/01/2022 11:08 AM, LOCATION [facility] INDICATION: S82.142D: Tibial plateau fracture, left, closed, with routine healing, subsequent encounter ADDITIONAL CLINICAL INFORMATION: Ordering Provider Reason For Exam: fracture COMPARISON: Multiple prior left knee radiographs most recent dated 05/02/2022. FINDINGS: A fracture of the lateral tibial plateau is not significantly changed in alignment. The fracture is impacted with articular surface depression measuring up to 1.3 cm posteriorly, increased from prior which previously measured 1.1 cm. There is moderate osteoarthritis. An effusion is visible. Procedure Note Thomas Cleaning DO - 08/01/2022 PROCEDURE: XR KNEE LEFT 3VW, DATE/TIME OF EXAM: 08/01/2022 11:08 AM, LOCATION [facility] INDICATION: S82.142D: Tibial plateau fracture, left, closed, with routine healing, subsequent encounter ADDITIONAL CLINICAL INFORMATION: Ordering Provider Reason For Exam: fracture COMPARISON: Multiple prior left knee radiographs most recent dated 05/02/2022. FINDINGS: A fracture of the lateral tibial plateau is not significantly changed in alignment. The fracture is impacted with articular surface depression measuring up to 1.3 cm posteriorly, increased from prior whichpreviously measured 1.1 cm. There is moderate osteoarthritis. An effusion isvisible. IMPRESSION: Tibial plateau fracture with mildly increased depression posteriorly, otherwise unchanged in alignment. > Dictated by Corey Tinoco DO (Sales Demonstrator) I, Thomas Cleaning DO have personally reviewed and interpreted this examination/study. > Interpreting Provider: Thomas Cleaning DO on 08/01/2022 12:48 PM Fabio Jackson MD DIAGNOSTIC IMAGING O RDERABLES * XR KNEE LEFT 2VW OR LESS (02/21/2022 1:48 PM CDT) Anatomical Region Laterality Modality Lower Extremity Radiographic Eunice ging 02/21/2022 2:10 PM CDT Impressions 02/21/2022 2:11 PM CDT IMPRESSION: Lateral tibial plateau fracture. This report was electronically signed by DEMETRIO WAKEFIELD MD on 02/21/2022 2:11 PM . Narrative 02/21/2022 2:11 PM CDT Exam: XR KNEE LEFT 2VW OR LESS History: S82.122A: Closed fracture of lateral portion of left tibial plateau, initial encounter Comparison: Outside left tibia-fibula radiographs dated 02/18/2022 Findings: A fracture of the lateral tibial plateau is again demonstrated. There is depression of the posterior aspect of the articular surface by approximately 1 cm. There is at least moderate osteoarthritis on this nonweightbearing study, greatest in the medial compartment. A moderate effusion and soft tissue swelling are noted. Procedure Note Demetrio [place] MD - 02/21/2022 Exam: XR KNEE LEFT 2VW OR LESS History: S82.122A: Closed fracture of lateral portion of left tibial plateau, initial encounter Comparison: Outside left tibia-fibula radiographs dated 02/18/2022 Findings: A fracture of the lateral tibial plateau is again demonstrated. There is depression of the posterior aspect of the articular surface by approximately 1 cm. There is at least moderate osteoarthritis on this nonweightbearing study, greatest in the medial compartment. A moderate effusion and soft tissue swelling are noted. IMPRESSION: Lateral tibial plateau fracture. This report was electronically signed by DEMETRIO WAKEFIELD MD on02/21/2022 2:11 PM . Fabio Jackson MD DIAGNOSTIC IMAGING O RDERABLES * (ABNORMAL) COMPLEMENT C3 C4 PANEL (04/18/2021 9:54 AM CDT) Complement C3 151 82 - 167 mg/dL [facility] ACCOUNT BILL Complement C4 43(H) 12 - 38 mg/dL [facility] ACCOUNT BILL Comment:FASTING Blood BLOOD SPECIMEN / Unknown 04/18/2021 9:54 AM CDT 04/18/2021 Narrative Resulting Agency Comment Lab Testing performed at: [facility] [place] [address] [facility] [id number] Shaun Cesar MD LAB - CHEMISTRY OR DERABLES Performing Organization Address [facility] Co de Phone Number [facility] ACCOUNT BILL [address] [place] [address] * (ABNORMAL) HEPATITIS SCREEN ACUTE (04/18/2021 9:54 AM CDT) Hepatitis A Virus Antibody IgM Non Reactive Non Reactive [facility] ACCOUNT BILL Hepatitis B Virus Surface Antigen Non Reactive Non Reactive [facility] ACCOUNT BILL Hepatitis B Core Virus Antibody IgM Non Reactive Non Reactive [facility] ACCOUNT BILL Hepatitis C Antibody Reactive(A) Non Reactive [facility] ACCOUNT BILL Comment: To differentiate past, resolved Hepatitis C virus (HCV) infection from biologic false positivity for HCV antibody, testing with another HCV antibody assay can be considered. Repeat HCV RNA testing if the person tested is suspected to have had HCV exposure within the past 6 months or has clinical evidence of HCV disease, or if there is concern regarding the handling or storage of the test specimen. FASTING Blood BLOOD SPECIMEN / Unknown 04/18/2021 9:54 AM CDT 04/18/2021 Narrative Resulting Agency Comment Lab Testing performed at: [facility] [place] [address] [facility] [id number] Shaun Cesar MD LAB - CHEMISTRY OR DERABLES Performing Organization Address City/[facility]/ZIP Co de Phone Number [facility] ACCOUNT BILL [address] [place] [address] Care Teams Repair Manager Relationship Specialty Start Date End Date Ryan Noel MD [address] [place] [address] PCP - General 02/20/22
--- OUTSIDE RECORDS SUMMARY | 2024-10-29 12:56 | XMS_ITS | Encounter Summary ---
Author Organization [facility] [employer] Address [address] [place] [address] Care Team Providers Care Senior Administrative Support Name Role Phone Brice Bustos MD Primary Care Provider [phone] Encounter Details Date Type Department Care Team (Late Contact Info) Description 10/26/2024 Orders Only [facility] [address] [place] [address] Augie Ocampo MD [address] [place], [place] [address] [address] [place] [phone] Leukocytosis, unspecified type Social History Tobacco Use Types Packs/Day Years [...] Encounters Date Type Department Care Team (Late Contact Info) Description 11/05/2024 11:45 AM CDT Office Visit [facility] Hematology [facility] Beni [address] [place] [address] Augie Ocampo MD [facility] [employer] [address] [place] [phone] documented as of this encounter Visit Diagnoses Diagnosis Leukocytosis, unspecified type documented in this encounter Care Teams Senior Administrative Support Relationship Specialty Start Date End Date Brice Bustos MD [address] [place] [phone] PCP - General Family Practice 09/17/23 documented as of this encounter
--- OUTSIDE RECORDS SUMMARY | 2024-10-29 12:56 | XMS_ITS | Clinical Summary ---
Author Organization [facility] Brenton Reynaga Address [address] [place] [address] Care Team Providers Care Regional Transfer Liaison Name Role Phone Brice Bustos MD Primary Care Provider [phone] Allergies No known active allergies Medications amLODIPine (NORVASC) 10 mg tablet Take 10 mg by mouth daily. 1 Active aspirin 81 mg Capsule Take 81 mg by mouth daily. Active cyanocobalamin (VITAMIN B-12) 100 mcg tablet Take 100 mcg by mouth daily. Active lisinopriL (PRINIVIL) 40 mg tablet Take 40 mg by mouth daily. 1 Active sertraline (ZOLOFT) 25 mg tablet Take 25 mg by mouth daily. 1 Active simvastatin (ZOCOR) 10 mg tablet Take 10 mg by mouth. 1 Active Cholecalciferol, Vitamin D3, (VITAMIN D3) 10 mcg (400 unit) capsule Take 400 Units by mouth daily. Active Calcium Carbonate-Vit D3-Min (Calcium 600 + Minerals) 600 mg calcium- 200 unit Tablet Take by mouth daily. Active budesonide-formot Chalo (SYMBICORT) 80-4.5 mcg/actuation HFA Aerosol Inhaler Take 2 Puffs by inhalation 2 times daily. Active buPROPion HCL (WELLBUTRIN SR) 150 mg Sustained Release 12 hour tablet Take 150 mg by mouth 2 times daily. Active doxycycline hyclate (VIBRAMYCIN) 100 mg tabletIndications :COPD with exacerbation (CMS/HCC) Take 1 Tablet (100 mg) by mouth 2 times daily. For 7 days 14 Tablet 4 Active albuterol sulfate HFA 90 mcg/actuation aerosol inhalerIndication s:COPD with exacerbation (CMS/HCC) Take 2 Puffs by inhalation every 6 hours as needed for Shortness of Breath. And wheezing 8.5 Gram Active Active Problems Problem Noted Date Diagnosed Date Polycythemia secondary to smoking 09/17/2023 Leukocytosis (leucocytosis) 09/17/2023 Encounters Date Type Department Care Team Description 10/27/2024 External Device Data STL ABSTRACTION Provider, Abstract 10/26/2024 Orders Only [facility] Oncology and Hematology - Cesar [address] [place] [phone] Augie Ocampo MD Leukocytosis, unspecified type 10/24/2024 External Device Data STL ABSTRACTION Provider, Abstract 10/23/2024 External Device Data STL ABSTRACTION Provider, Abstract 10/21/2024 External Device Data STL ABSTRACTION Provider, Abstract 10/21/2024 External Device Data STL ABSTRACTION Provider, Abstract 10/12/2024 Orders Only [facility] Oncology and Hematology - Cesar [address] Augie Ocampo MD Leukocytosis, unspecified type 10/06/2024 External Device Data STL ABSTRACTION Provider, Abstract 09/28/2024 Orders Only [facility] Oncology and Hematology - Cesar [address] [place] [phone] Augie Ocampo MD Leukocytosis, unspecified type 09/14/2024 Orders Only [facility] Oncology and Hematology - Cesar [address] [place] [phone] Augie Ocampo MD Leukocytosis, unspecified type 09/09/2024 External Device Data STL ABSTRACTION Provider, Abstract 09/09/2024 External Device Data STL ABSTRACTION Provider, Abstract 08/31/2024 Orders Only [facility] Oncology and Hematology - Cesar Beni Proter [address] [place] [phone] Augie Ocampo MD Leukocytosis, unspecified type 08/25/2024 External Device Data STL ABSTRACTION Provider, Abstract 08/17/2024 Orders Only [facility] Oncology and Hematology - Cesar [address] [place] [address] Augie Ocampo MD Leukocytosis, unspecified type 08/03/2024 Orders Only [facility] Oncology and Hematology - Cesar [address] [place] [address] Augie Ocampo MD Leukocytosis, unspecified type from Last 3 Months Family History Medical History Relation Name Comments No Known Problems Brother No Known Problems Child Cancer Father No Known Problems Mother Cancer Sister 1 Leukemia Sister 2 Relation Name Status Comments Brother Alive Child Alive Father Mother Sister 1 Sister 2 Sister 3 Alive Social History Tobacco Use Types Packs/Day Years Used Date Smoking Tobacco: Former Cigarettes 1 52 0 09/17/1971 - 09/25/2023 Smokeless Tobacco: Never Tobacco Cessation:Counseling Given: Not Answered Alcohol Use Standard Drinks/Week Comments Yes 0 (1 standard drink = 0.6 oz pur e alcohol) socially Comments Unknown Sex and Gender Information Value Date Recorded Sex Assigned at Not on file Legal Sex Female 3:04 PM CDT Gender Identity Not on file Sexual Orientation Not on file Last Filed Vital Signs Vital Sign Reading Time Taken Comments Blood Pressure 120/82 01/07/2024 11:39 AM CDT Pulse 101 01/07/2024 11:39 AM CDT Temperature 36.5 C (97.7 F) 01/07/2024 11:39 AM CDT Respiratory Rate 20 01/07/2024 11:39 AM CDT Oxygen Saturation 93% 01/07/2024 11:39 AM CDT Inhaled Oxygen Concentration - - Weight 94.8 kg (209 lb) 01/07/2024 11:39 AM CDT Height 165.1 cm (5' 5 ) 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 Body Mass Index 34.78 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 Plan of Treatment Upcoming Encounters Date Type Department Care Team (Late st Contact Info) Description 11/05/2024 11:45 AM CDT Office Visit [facility] Oncology and Hematology - Cesar [address] [place] [address] Augie Ocampo MD [address] [facility] [address] [place] [address] Health Maintenance Due Date Last Done Comments Pre-Diabetes and Diabetes Screening 1955 DTAP/TDAP/TD VACCINES (1 - Tdap) 1974 PNEUMOCOCCAL VACCINE 50+ YEARS (1 of 2 - PCV) 07/29/19 74 BREAST CANCER SCREENING 1995 COLORECTAL SCREENING 2000 Colorectal Cancer Screening 2000 FIT-DNA Q 3 years 2000 FIT/FOBT Q 1 year 2000 Flex Sig/CT Colonography Q 5 years 2000 Lung Cancer Screening 2005 ZOSTER VACCINE (1 of 2) 2005 RSV VACCINE (60+ or ) (1 - Risk 60-74 years 1-dose series) 2015 OSTEOPOROSIS SCREENING 2020 INFLUENZA VACCINE (#1) 2024 [place] Prev entative Visit/Annual Wellness Visit 08/19/2024 Insurance [facility] [id number] MEDICAID [place] Care Teams Regional Transfer Liaison Relationship Specialty Start Date End Date Brice Bustos MD [address] [place] [phone] PCP - General Family Practice 09/17/23
--- OUTSIDE RECORDS SUMMARY | 2024-10-29 12:56 | XMS_ITS | Referral Summary ---
Author Organization [facility] [employer] Address [address] [place] [address] Care Team Providers Care Computer Systems Information Director Name Role Phone Ryan Noel MD Primary Care Provider [phone] Source Comments [facility] [employer],non-[facility] Affiliates and Associated Physician Practices is amultiple site organization consisting of ambulatory clinics and hospital sitesin [place], [place], [place] and [place]. This disclosure is being madepursuant to the Care Everywhere program and may not contain all information available regarding this patient. Last updated 18.[facility] Allergies No known active allergies Medications * Be aware that medications may not be up to date on this document. Alwaysverify current medications with the patient. Medication Sig Dispensed Refills Start Date End Date Status amLODIPine (NORVASC) 10 MG tablet Take 1 (one) tablet by mouth once daily 02/05/2021 Active Calcium Carbonate-Vit D-Min (RA CALCIUM 600/VIT D/MINERALS) 600-200 MG-UNIT TABS Take by mouth once daily Active lisinopril (PRINIVIL; ZESTRIL) 40 MG tablet Take 1 (one) tablet by mouth once daily 02/05/2021 Active multivitamins (ONE A DAY) capsule Take 1 (one) capsule by mouth once daily Active sertraline (ZOLOFT) 25 MG tablet Take 1 (one) tablet by mouth once daily 02/05/2021 Active simvastatin (ZOCOR) 10 MG tablet Take 1 (one) tablet by mouth at bedtime 02/08/2021 Active cyanocobalamin (VITAMIN B-12) 100 MCG tablet Take 1 (one) tablet by mouth once daily Active Cholecalciferol (VITAMIN D3) 10 MCG (400 UNIT) Active Aspirin 81 MG CAPS Take 81 mg by mouth once daily Active Active Problems Problem Noted Date Diagnosed [...] Mass Index 33.78 11/07/2023 1:05 PM CDT Plan of Treatment Not on file Procedures Procedure Name Priority Date/Time Associated Diagnosis Comments HEPATITIS SCREEN ACUTE Routine 04/18/2021 9:54 AM CDT Positive SURYA (antinuclear antibody) Polyarthralgia from Last 3 Months or Most Recently Relevant to Health Maintenance Results * (ABNORMAL) HEPATITIS SCREEN ACUTE (04/18/2021 9:54 [...] Resulting Agency Comment Lab Testing performed at: [facility] [address] [place] [id number] Shaun Cesar MD LAB - CHEMISTRY OR DERABLES [facility] ACCOUNT BILL [address] [place] [address] from Last 3 Months or Most Recently Relevant to Health Maintenance Care Teams Computer Systems Information Director Relationship Specialty Start Date End Date Ryan Noel MD [facility] [place] [address] PCP - General 02/20/22
--- OUTSIDE RECORDS SUMMARY | 2024-10-29 12:56 | XMS_ITS | Clinical Summary ---
Author Organization [facility] [email or web address] Address [address] [facility] [place] [address] Care Team Providers Care Recreation Professor Name Role Phone Ryan Noel MD Primary Care Provider [phone] Source Comments [facility] [email or web address],non-[facility] Affiliates and Associated Physician Practices is amultiple site organization consisting of ambulatory clinics and hospital sitesin [place], [place], [place] and [place]. This disclosure is being madepursuant to the Care Everywhere program and may not contain all information available regarding this patient. Last updated 18.[facility] [email or web address] Allergies No known active allergies Medications * [...] Viral hepatitis C 04/19/2021 Essential hypertension 02/23/2019 Family History Medical History Relation Name Comments COPD - Chronic Obstructive P ulmonary Disease Father Hypertension Father Other - Pulmonary/Lung Father Emphy sema, unspecified Cancer - Breast Maternal Aunt Leukemia Maternal Uncle Arthritis - Rheumatoid Mother COPD - Chronic Obstructive P ulmonary Disease Mother Glaucoma Mother Hyperlipidemia Mother Hypertension Mother Cancer Sister Relation Name Status Comments Father (Age 75) Maternal Aunt Maternal Uncle Mother (Age 86) natural ca uses Sister (Age 49) Social History Tobacco Use Types Packs/Day Years [...] 11/07/2023 1:05 PM CDT Plan of Treatment Health Maintenance Due Date Last Done Comments BONE DENSITY TESTING 1955 COLOGUARD (AGES 45-75) - COL ON CA SCREENING 1955 COLON MONITORING 1955 COLONOSCOPY - COLON CA SCREENING 1955 CT COLONOGRAPHY - COLON CA SCREENING 1955 Colorectal Cancer Screening 1955 FIT - COLON CA SCREENING 1955 FLEX SIG - COLON CA SCREENING 1955 MAMMOGRAM 1955 DTAP/TDAP/TD VACCINES (1 - Tdap) 1974 LUNG CANCER SCREENING 2005 PNEUMOCOCCAL VACCINE 50+ (1 of 1 - PCV) 2005 ZOSTER VACCINE (1 of 2) 2005 SCREENING FOR DIABETES 11/07/2023 COVID-19 VACCINE (1 - 2023-2 5 season) 2024 INFLUENZA VACCINE (#1) 2024 DEPRESSION SCREENING 08/19/2024 MEDICARE AWV CALENDAR YEAR 2024 Respiratory Syncytial Virus (RSV) Vaccine Pt: or over 60 yrs (1 - 1-dose 75+ series) 2030 HEPATITIS C SCREENING Completed 04/19/2021 , 04/18/2021 HEPATITIS B VACCINE Aged Out No longe r eligible based on patient's age to complete this topic HIB VACCINE Aged Out No longer eligi ble based on patient's age to complete this topic HPV VACCINE Aged Out No longer eligi ble based on patient's age to complete this topic MENINGOCOCCAL (Group B) VACCINE SHARED DECISION-MAKING Aged Out No longer eligible based on patient's age to complete this topic MENINGOCOCCAL GROUPS A/C/Y/W VACCINE Aged Out No longer eligible b ased on patient's age to complete this topic Procedures Procedure Name Priority Date/Time Associated Diagnosis [...] Resulting Agency Comment Lab Testing performed at: [address] [id number] Shaun Cesar MD LAB - CHEMISTRY OR DERABLES [facility] ACCOUNT BILL [address] [place] [address] from Last 3 Months or Most Recently Relevant to Health Maintenance Care Teams Recreation Professor Relationship Specialty Start Date End Date Ryan Noel MD [address] [place] [address] PCP - General 02/20/22
--- OUTSIDE RECORDS SUMMARY | 2024-10-29 12:56 | XMS_ITS | CONTINUITY OF CARE DOCUMENT ---
Author Name lu leigh Address Unknown Organization [facility] Address [address] [facility] [address] [place] [address] Phone [phone] Care Team Providers Care Leather Splitter Name Role Phone Felipe Diana MD Unavailable LINDA JETT MD Unavailable [phone] LINDA JETT MD Unavailable [phone] PROBLEMS Condition Status Date Provider Notes Family History of Hypertension: completed - Felipe Diana MD Cardiology examination completed 1 - Felipe Diana MD HYPERTENSION active Felipe Diana MD Hyperlipidemia active Felipe Diana MD Tobacco abuse active Felipe Diana MD Hyperlipidemia - allergy to atorvastatin active Felipe Diana MD Hepatitis C active Felipe Diana MD Osteopenia active Felipe Diana MD Total hip arthroplasty, bilateral active Felipe Diana MD Retinal tear 11/2020 active Felipe Nieves Obesity active Felipe Diana MD 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 active Felipe Diana MD ENCOUNTERS Date Type Provider Location Encounter Diag nosis 1 - 6 In-person encounter Office Visit Felipe Diana MD [place] [facility] Family History of Hypertension:Cardiology examination 1 - 1 In-person encounter Office Visit Felipe Diana MD [facility] HYPERTENSIONHyperlipidemiaTobacco abuseHyperlipidemia - allergy to atorvastatinHepatitis COsteopeniaTotal hip arthroplasty, bilateralRetinal tear 11/2020ObesityCalcified arteriosclerosis of coronary artery noted on lung CT VITAL SIGNS Date Observation Value Provider Body Mass Index (Ratio) 34.28 kg/m2 Lyndsay Diana MD blood pressure, cuff size large Franca waters [place] blood pressure, diastolic 80 mm[Hg] Franca waters [place] blood pressure, systolic 140 mm[Hg] [facility] jadon [place] oxygen saturation, oximetry 92 % Claudia Kwon respiratory rate E&M 16 /min Ketty Kwon pulse rate 111 /min Claudia nieves weight E&M 206 [lb_av] Claudia nieves height E&M 65 [in_i] Claudia nieves Body Mass Index (Ratio) 34.21 kg/m2 Lyndsay Diana MD blood pressure, diastolic 70 mm[Hg] Willa [employer] blood pressure, systolic 120 mm[Hg] Tarah [employer] blood pressure, diastolic 70 mm[Hg] Lucille Colunga blood pressure, systolic 120 mm[Hg] Rosalie Colunga oxygen saturation, oximetry 98 % Lolly Colunga respiratory rate E&M 16 /min Andrea Colunga pulse rate 91 /min Lolly leach weight E&M 205.6 [lb_av] Lolly vazquez height E&M 65 [in_i] Lolly leach ALLERGIES No Known Drug Allergies HISTORY OF MEDICATION USE Medication Status Instructions Dates Provider Indications Com ments lisinopril 40 mg tablet active TAKE 1 TABLET BY MOUTH ONCE DAILY Lolly Hoyosenson simvastatin 10 mg tablet active TAKE 1 TABLET BY MOUTH ONCE DAILY IN THE EVENING Lolly Hoyosenson sertraline 25 mg tablet active TAKE 1 TABLET BY MOUTH ONCE DAILY Lolly Hoyosenson amlodipine 10 mg tablet active TAKE 1 TABLET BY MOUTH ONCE DAILY Lolly Hoyosenson alendronate 10 mg tablet active TAKE 1 TABLET BY MOUTH ONCE DAILY Lolly Hoyosenson Calcium 600 + D(3) 600 mg calcium- 200 unit capsule active Take 1 capsule by mouth once a day Lolly Hoyosenson Vitamin D3 50 mcg (2,000 unit) tablet active Take 1 tablet by mouth once a day Lolly Colunga SOCIAL HISTORY Date Observation Value Provider social history E&M S moking History: P juan francisco currently smokes every day. P atina has been counseled to quit. Felipe Diana MD smoking/tobacco cess ation, patient education and counseling yes Felipe Diana MD social history reviewed E&M revi ewed - no changes required Felipe Diana MD number of years as a smoker 50 a Claudia Kwon smoking history, tot al pack/day 1 Claudia Kwon cigarette use yes Claudia Douglas nd smoking status Current every day smoker M eduardo Doyle number of grandchildren Felipe Diana MD number of years as a smoker 50 a Lolly Colunga smoking history, tot al pack/day 1 Lolly Colunga cigarette use yes Lolly vazquez smoking status Current every day smoker Sulma Colunga FAMILY HISTORY Family Member Condition Mother Family History of Hy pertension: Mother Family History of Di abetes: INSURANCE PROVIDERS Payer name Policy type / Coverage type [place] [employer] ID AARP MEDICARE ADVANTAGE HMO-POS HMO [id number] HEALTHCARE AND FAMILY SERVICES Medicaid 3 [id number] ADVANCE DIRECTIVES Name Date DISCUSSED - NO DECISION MADE TREATMENT PLAN Date Name Performer [id number],S, A symptomatic.Recent stress test was negative for ischemia. Her echo showed normal LVF with EF 60% and no significant valvular disease. The patient was reassured. Chest pain free. Felipe Diana MD [id number],S, B P control is satisfactory. Felipe Diana MD [id number],S, W eight loss advised. Felipe Diana MD [id number],S, L abs from PCP show LDL 119 and triglycerides 217. She was tried on atorvastatin and discontinued due to GI effect. Now on Simvastatin. We aim for LDL<70. Felipe Diana MD [id number],S, C essation of smoking is strongly encouraged. Techniques for smoking cessation discussed. The patient reports nicotine patches have helped her quit before in the past. Felipe Diana MD [id number],C,Weight loss a dvised. Felipe Diana MD [id number],C,C essation of smoking is strongly encouraged. Techniques for smoking cessation discussed. The patient reports nicotine patches have helped her quit before in the past. Felipe Diana MD [id number],C,L abs from PCP show LDL 119 and triglycerides 217. She was tried on atorvastatin and discontinued due to GI effect. Now on Simvastatin. We aim for LDL<70. Felipe Diana MD [id number],C,BP control is satisfactory. Felipe Diana MD [id number],C,A symptomatic. Given her risk factors for CAD, will arrange an echo and nuclear stress test. Felipe Diana MD Cardiology: A symptomatic.Recent stress test was negative for ischemia. Her echo showed normal LVF with EF 60% and no significant valvular disease. The patient was reassured. Chest pain free. Felipe Diana MD Cardiology: B P control is satisfactory. Felipe Diana MD Cardiology: W eight loss advised. Felipe Diana MD Cardiology: L abs from PCP show LDL 119 and triglycerides 217. She was tried on atorvastatin and discontinued due to GI effect. Now on Simvastatin. We aim for LDL<70. Felipe Diana MD Cardiology: C essation of smoking is strongly encouraged. Techniques for smoking cessation discussed. The patient reports nicotine patches have helped her quit before in the past. Felipe Diana MD Cardiology:Weight loss advised. Felipe Diana MD Cardiology:Cessation of smoking is strongly encouraged. Techniques for smoking cessation discussed. The patient reports nicotine patches have helped her quit before in the past. Felipe Diana MD Cardiology:Labs from PCP show LDL 119 and triglycerides 217. She was tried on atorvastatin and discontinued due to GI effect. Now on Simvastatin. We aim for LDL<70. Felipe Diana MD Cardiology:BP control is satisfa ctory. Felipe Diana MD Cardiology:Asymptoma tic. Given her risk factors for CAD, will arrange an echo and nuclear stress test. Felipe Diana MD Date Name Stress Regadenoson Complete Echo HISTORY OF PROCEDURES Procedure Date Procedure Name Provider Procedure Notes S tatus EKG Felipe Diana MD complet ed EKG Felipe Diana MD complet ed
== END 2024-10-29 11:02 | disposition home or self-care (01) ==
PROVIDERS: PCP Emergency Medicine; Visit Provider Internal Medicine Hematology & Oncology
DX: D72.829 Elevated white blood cell count, unspecified (principal)
CPT/HCPCS: 36415; 80048; 85025